=== PATIENT | male | born 1990 | race Caucasian/White ===

== ENCOUNTER 2017-05-10 14:31 | Emergency (ER) | payer MEDICAID, OTHER ==
[~2017-05-10] VITALS: Ht 182.9 cm; Wt 100.0 kg
[~2017-05-10 14:31] MED LIST: HYDR-762 PO
[2017-05-10 14:41] VITALS: Ht 182.9 cm; Wt 100.0 kg
[2017-05-10] MEDS ORDERED: ACETAMINOPHEN 500 MG TAB PO STA (15:45)
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
[2017-05-10] MEDS ORDERED: HYDR-906 PO (17:13)
== END 2017-05-10 17:20 | disposition home or self-care (01) ==
LOC: FTE 14:31
DX: M79.605 Pain in left leg (principal); M25.552 Pain in left hip; M25.562 Pain in left knee; F17.210 Nicotine dependence, cigarettes, uncomplicated; R93.0 Abnormal findings on diagnostic imaging of skull and head, not elsewhere classified
CPT/HCPCS: 70450; 73510; 73562; 73590; 74176; Z7502; Z7610